=== PATIENT | male | born 1970 | race Caucasian/White ===

== ENCOUNTER 2020-09-04 07:18 | Outpatient (CLI) | payer OTHER, SELFPAY ==
--- NOTE | 2020-09-18 11:45 | WPDHOMESLEEP ---
Sleep Study - Home Unattended Date of Study: 09/04/20 Ordering Provider: Clint Izquierdo MD Interpreting Provider: Geovanna Parks MD Home Sleep Study Type: Apnea Link Air Height: 1.83 m Weight: 96.615 kg Body Mass Index: 28.8 Neck Circumference (inches): 16 Point [place]: 11 Reason for Sleep Study hypersomnia Sleep History Kodi Villeda is a 49 year old man who is sleepy most all of the time. This has been going on intermittently over the ;ast 1-2 years. He has difficulty falling asleep, difficulty waking up throughout the night and has excessive daytime sleepiness on occasion. Other family members also have sleep apnea. He rarely awakens from sleep feeling short of breath. He frequently snores and is frequently loud enough that others complain about it. he occasionally has trouble sleep with a cold. Rarely wakes up gasping for breath at night, rarely has breathing problems at night observed by others rarely sweats excessively night. Does not notice his heart pounding or beating irregularly night. He occasionally falls asleep during the day, rarely falls asleep involuntarily and rarely falls asleep while driving. He does not fall asleep while exerting physical ever. He does not have loss of muscle tone with strong emotion. He does not have daytime difficulties due to excessive sleepiness he does not feel paralyzed on waking or falling asleep. He rarely has vivid dreamlike scenes upon awakening or falling asleep. He does not feel afraid to go to sleep. He does not have nightmares. He rarely remembers his dreams. He frequently has racing thoughts. He occasionally feels sad or depressed. He frequently has anxiety. He occasionally has muscular tension and occasionally notices parts of his body jerking. He rarely kicks at night. He occasionally has crawling and aching feelings in his legs. He rarely has any kind of leg pain at night. He does not have morning jaw pain does not grind his teeth at night. He is not bothered by pain during the day nor is he awakened by pain at night. He occasionally wakes up feeling stiff in the morning with sore achy muscles. He does not wake up with pain in the neck and spine. He has fatigue, memory problems, concentration problems, and alcoholism. He takes antacids regularly. Normal bedtime is between 10:00 p.m. and 10:30 p.m., falling asleep within 10 minutes, typically waking once at night to use the bathroom, looks at his phone and watches TV if he wakes after 4:00 a.m.. He may stay awake for 1/2 hour. He wakes in the morning at 6:00 a.m.. On weekends, bedtime is later 11:00 p.m. to 12 midnight and he wakes at 7:00 a.m.. He estimates getting 6-7 hours of sleep at night. Sometimes he takes an afternoon nap. A short nap of 10-15 minutes may be refreshing. He is usually drowsy in the morning for 1 hour. He feels better in the morning compared other times of day. Habits: He quit tobacco years ago. Caffeine: He drinks tea and soda a total of 3 per day. He drinks alcohol but not daily. He does not use recreational drugs. [facility] Past Medical History Medical History (Updated 09/18/20 @ 11:55 by Geovanna aPrks MD) Acid reflux disease Coronary artery disease Depression Hypertension Surgical History Surgical History (Updated 09/18/20 @ 11:51 by Geovanna Parks MD) Status post coronary artery bypass graft 3 vessels; 05/23/2020 Social History Social History (Updated 09/18/20 @ 11:52 by Geovanna Parks MD) Smoking status: Former smoker Alcohol intake: current Substance use: never Living arrangements: with family Additional occupation/education comments: He is a [employer]. Medications Medications: aspirin 81 mg a day atorvastatin 80 mg a day Bystolic 5 mg a day clopidogrel 75 mg a day lisinopril 5 mg a day Sleep Procedure This test was performed using 4 channel monitoring including respiratory effort channel, snoring channel, heart rate channel, and oxyg
[2020-09-18 11:59] VITALS: BMI 28.8
== END 2020-09-05 09:42 | disposition home or self-care (01) ==
LOC: ANHCSM 07:19
PROVIDERS: PCP Nurse Practitioner Family; Visit Provider Internal Medicine Cardiovascular Disease
DX: G47.33 Obstructive sleep apnea (adult) (pediatric) (principal); G47.10 Hypersomnia, unspecified
CPT/HCPCS: 95806

== ENCOUNTER 2023-03-04 11:23 | Emergency (ER) | payer OTHER, SELFPAY ==
[2023-03-04 11:42] VITALS: BP 118/70; PULSE 98; RESP 16; TEMP 36.3; O2SAT 98
--- NOTE | 2023-03-04 11:43 | ED.GENADULT ---
HPI - General Adult General Chief complaint: Skin/Abscess/Foreign Body Stated complaint: left ear swollen Source: patient Mode of arrival: ambulatory Limitations: no limitations History of Present Illness HPI narrative: 52-year-old male presented for complaint of left outer ear swelling and pain. Onset yesterday. Denies injury/trauma, burn, insect bite, piercing etc.. Endorses cold for 1 week, and symptoms have resolved. He denies tinnitus, muffled hearing, ear drainage, dizziness, nausea, vomiting, fevers or chills. No treatment prior to arrival. Related Data Home Medications Medication Instructions Recorded Confirmed aspirin 81 mg tablet,delayed 81 mg PO DAILY 03/04/23 03/04/23 release atorvastatin 80 mg tablet 80 mg PO DAILY 03/04/23 03/04/23 lisinopril 2.5 mg tablet 2.5 mg PO DAILY 03/04/23 03/04/23 Allergies Allergy/AdvReac Type Severity Reaction Status Date / Time No Known Allergies Allergy Verified 03/04/23 11:35 Review of Systems Review of Systems: CONSTITUTIONAL: Denies malaise, chills, or fever. EYES: Denies visual changes, redness, or discharge. ENT: Denies rhinorrhea, congestion, sinus pain, and sore throat. Reports ear pain and swelling CARDIOVASCULAR: Denies chest pain, palpitations, or edema. RESPIRATORY: Denies cough or dyspnea. GASTROINTESTINAL: Denies abdominal pain, nausea, vomiting, diarrhea SKIN: Denies rash or itching. MUSCULOSKELETAL: Denies myalgia. NEUROLOGIC: Denies headache. All systems reviewed & are unremarkable except as noted in HPI and below PMFSH Past Medical History Medical History Acid reflux disease Coronary artery disease Depression Hypertension Surgical History Surgical History Status post coronary artery bypass graft 3 vessels; 05/23/2020 Social History Social History Smoking status: Former smoker Alcohol intake: current Substance use: never Living arrangements: with family Additional occupation/education comments: He is a [employer]. Comments At time of signature, agree with nursing past medical, surgical, social and family history. There is no relevant family history pertinent to the presenting complaint Exam Narrative: GENERAL: Well-appearing, well-nourished, and in no acute distress. HEAD: Normocephalic EYES: conjunctivae clear ENT: Nares clear. Mucous membranes moist. TM pearly rico with dull light reflex bilaterally; left tragal tenderness. Left auricular erythematous and mild swelling, tender; no fluctuance. Canal without drainage or swelling. Oropharynx not erythematous without lesions. NECK: Supple. No lymphadenopathy CHEST: Clear to auscultation, breath sounds equal. HEART: Regular rate and rhythm. No murmur heard. SKIN: Warm, dry, no rash. NEURO: Alert and oriented x3. PSYCH: Normal mood and affect Course Course Emergency Course: Patient is aware of diagnosis, understands and agrees to treatment plan. Anticipatory guidance given. Patient agrees to follow-up as directed and is aware of reasons to seek care at the emergency department. Portions of this record may have been created with voice recognition software Level of Care: Express Care Visit Vital Signs Vital signs: Reviewed Medical Decision Making MDM Narrative Medical decision making narrative: Discussed physical exam findings consistent with auricular perichondritis. Reviewed Rx. Advised supportive measures and signs/symptoms to go to the ER. Patient is appropriate for outpatient treatment and follow-up. Differential Diagnosis Differential Diagnosis: Coronavirus, strep pharyngitis, allergic rhinitis, upper respiratory tract infection, sinusitis, rhinosinusitis, nasopharyngitis, viral pharyngitis, otitis media, otitis externa, eustachian tube dysfunction, foreign body, cerumen impaction. Dischar
== END 2023-03-04 12:11 | disposition home or self-care (01) ==
PROVIDERS: Emergency Provider Nurse Practitioner Family; PCP Family Medicine
DX: H61.002 Unspecified perichondritis of left external ear (principal); K21.9 Gastro-esophageal reflux disease without esophagitis; I25.10 Atherosclerotic heart disease of native coronary artery without angina pectoris; I10 Essential (primary) hypertension; Z87.891 Personal history of nicotine dependence; Z79.82 Long term (current) use of aspirin; Z95.1 Presence of aortocoronary bypass graft
CPT/HCPCS: 99213; G0463

== ENCOUNTER 2023-03-28 19:32 | Emergency (ER) | payer OTHER, SELFPAY ==
--- NOTE | 2023-03-28 19:37 | ED.EAR ---
HPI - Ear Problem General Chief complaint: Ear Stated complaint: lt earache Time Seen by Provider: 03/28/23 19:37 Source: patient Mode of arrival: ambulatory Limitations: no limitations History of Present Illness HPI Narrative: Kodi is a 52-year-old male patient presenting to the clinic today with complaints of left-sided ear pain times. He reports he was seen on March 05 and diagnosed with perichondritis and treated with ciprofloxacin 500 mg b.i.d. times 10 days. States it did eventually improve however he has been off the antibiotics for 3 days and now he is starting to have some discomfort again. Reporting a lot of drainage to the left sinus and pain to the rosita aurcle area of the left ear Related Data Home Medications Medication Instructions Recorded Confirmed aspirin 81 mg tablet,delayed 81 mg PO DAILY 03/04/23 03/28/23 release atorvastatin 80 mg tablet 80 mg PO DAILY 03/04/23 03/28/23 lisinopril 2.5 mg tablet 2.5 mg PO DAILY 03/04/23 03/28/23 Allergies Allergy/AdvReac Type Severity Reaction Status Date / Time No Known Allergies Allergy Verified 03/28/23 19:43 Review of Systems Review of Systems: Pertinent positives per HPI. Patient denies any fever, chills, rash, headache, visual changes, dizziness, cough, runny nose, sore throat, shortness of breath, chest pain, palpitations, nausea, vomiting, diarrhea, constipation, abdominal pain, or any urinary issues. PMFSH Past Medical History Medical History Acid reflux disease Coronary artery disease Depression Hypertension Surgical History Surgical History Status post coronary artery bypass graft 3 vessels; 05/23/2020 Social History Social History Smoking status: Former smoker Alcohol intake: current Substance use: never Living arrangements: with family Additional occupation/education comments: He is a [employer]. Comments At the time of my signature, I reviewed and agree with the nursing past medical, surgical, social, and family history. There is no relevant family history pertinent to the patient complaint. Exam Narrative: General: Well-developed, well nourished, in no apparent distress Head: Normocephalic, atraumatic Eyes: Pupils equally round and reactive to light bilaterally, EOM intact, sclera and conjunctive clear, no discharge, lids normal Ears: Right tMs intact and clear, left TM intact, very mild bulging with congestion behind the left TM, no tenderness to palpation over the tragus or pulling of the pinna, no swelling noted to the pinna, tenderness to palpation over the rosita auricle nodes, ear canals clear, no drainage, grossly hearing normal. Nose: Nares patent, clear nasal discharge, no inflammation, no sinus tenderness. Mouth: Oropharynx without lesions or masses, good dentition, MMM. Neck: Supple, trachea midline, no enlargement of anterior or posterior cervical nodes, no thyroid masses or goiter palpable. Cardio: Regular rate and rhythm, s1 and s2 normal, no murmur appreciated. Resp: Clear to auscultation bilaterally anteriorly and posteriorly, no rhonchi, rales, wheezing or rubs Course Course Emergency Course: Portions of this record may have been created with voice recognition software. Level of Care: Express Care Visit Vital Signs Vital signs: Vital signs reviewed Medical Decision Making MDM Narrative Medical decision making narrative: At the time of visit patient is resting comfortably on the exam table. Patient appears to be nontoxic. No obvious sign of perichondritis however he is reporting pain over the rosita auricle lymph nodes and a burning sensation in his ear when he closes his mouth. Will send in prescription for Augmentin and prednisone. Supportive measures were discussed with the patient and they voiced understan
[2023-03-28 19:43] VITALS: BP 125/81; PULSE 81; RESP 16; TEMP 36; O2SAT 98
== END 2023-03-28 19:55 | disposition home or self-care (01) ==
PROVIDERS: Emergency Provider Nurse Practitioner Family; PCP Family Medicine
DX: H92.02 Otalgia, left ear (principal); Z87.891 Personal history of nicotine dependence; K21.9 Gastro-esophageal reflux disease without esophagitis; I25.10 Atherosclerotic heart disease of native coronary artery without angina pectoris; I10 Essential (primary) hypertension; F32.A Depression, unspecified; Z95.1 Presence of aortocoronary bypass graft; Z79.82 Long term (current) use of aspirin
CPT/HCPCS: 99213; G0463

== ENCOUNTER 2023-05-28 09:17 | Outpatient (CLI) | payer OTHER, SELFPAY ==
[2023-05-28 09:46] LABS: Basophils Percent Auto 0.3 % (0.2-1.2); Eosinophils Absolute Auto 0.2 K/mm3 (0-0.3); Eosinophils Percent Auto 1.7 % (0-4.4); Hemoglobin 15.3 g/dL (14.0-18.0); Immature Granulocyte Absolute 0.05 K/mm3 (0.00-0.031); Immature Granulocyte Percent A 0.6 % (0-0.5); Lymphocytes Percent Auto 13.7 % (18.3-44.2); Mean Corpuscular HGB Conc 33.3 g/dl (32-36); Mean Corpuscular Hemoglobin 31.8 pg (26-34); Mean Corpuscular Volume 95.6 fl (80-100); Monocytes Percent Auto 11.5 % (2.6-8.5); Neutrophils Absolute Auto 6.3 K/mm3 (1.3-6.7); Neutrophils Percent Auto 72.2 % (45.5-73.1); Platelet Count Result 244 k/mm3 (150-375); Red Blood Count 4.81 M/mm3 (4.6-6.20); Red Cell Distribution Width 13.1 % (11.5-14.5); White Blood Count 8.7 K/mm3 (4.5-10.0)
[2023-05-28 10:10] LABS: Alanine Aminotransferase 27 U/L (6-50); Albumin Level 4.4 g/dL (3.5-5.1); Alkaline Phosphatase 76 U/L (38-126); Anion Gap 5 mmol/L (8-16); Aspartate Amino Transferase 25 U/L (17-59); Bilirubin,Total 0.7 mg/dL (0.2-1.3); Blood Urea Nitrogen 13 mg/dL (9-20); Calcium 9.6 mg/dL (8.4-10.2); Carbon Dioxide 31 mmol/L (22-30); Chloride 102 mmol/L (98-107); Estimated Glomerular Filt Rate > 60; Glucose 101 mg/dL (65-110); Potassium 4.3 mmol/L (3.4-5.0); Sodium 138 mmol/L (137-145)
== END 2023-05-28 09:18 | disposition home or self-care (01) ==
PROVIDERS: PCP Family Medicine; Visit Provider Internal Medicine Cardiovascular Disease
DX: Z01.812 Encounter for preprocedural laboratory examination (principal); R94.39 Abnormal result of other cardiovascular function study
CPT/HCPCS: 36415; 80053; 85025